=== PATIENT | male | born 1945 | race African-American/Black ===

== ENCOUNTER 2019-12-28 08:44 | Outpatient (CLI) | payer MEDICARE ==
[2019-12-28 10:05] LABS: Blood Urea Nitrogen 21 mg/dL (9-20)
--- NOTE | 2019-12-28 10:47 | Cat Scan Report ---
CT ABDOMEN AND PELVIS WITH CONTRAST HISTORY: PROSTATE CANCER COMPARISON: 12/08/2018 TECHNIQUE: Axial CT images were obtained through the abdomen and pelvis after 100 cc of Omnipaque 300 intravenously. Sagittal and coronal reformatted images. All CT scans at this location are performed using CT dose reduction for ALARA by means of automated exposure control. FINDINGS: CT ABDOMEN: Lung Bases: Clear. Liver: No significant abnormality. Biliary: Cholelithiasis is again noted. No biliary dilatation or acute inflammation. Spleen: No significant abnormality. Unenlarged. Pancreas: No significant abnormality. Adrenals: No significant abnormality. Kidneys: No significant abnormality. Lymphatics: No lymphadenopathy. Vasculature: Moderate diffuse calcific plaques throughout the abdominal aorta and iliac arteries. No stenosis, dissection or aneurysm. Bowel/Peritoneum: No significant abnormality. No free air. No free fluid. Normal appendix. CT PELVIS: : The prostate gland is normal size. The bladder is empty and poorly evaluated. No gross abnormalit y. The distal ureters are unremarkable. Osseous Structures: Subtle blastic bony lesions are identified in the visualized thoracolumbar spine, pelvis and proximal left femur. The bony lesions appear increased in size and both size and number b y approximately 10-20%. For instance, there is a new 1.7 cm blastic bony lesion in T12. There is a ne w 1 cm blastic bony lesion in L4. There is a new 1.6 cm blastic bony lesion in the proximal left femu r. An L1 lesion has increased from 4 mm to 10 mm. No pathologic fractures identified. Additional Findings: None IMPRESSION: Mild progression of osseous metastatic disease is suspected since 12/08/2018 exam as described. No vis ceral mass or anson involvement is identified. Cholelithiasis, unchanged. No acute process is identified. Signer Name: Tello Romero Jr, MD Signed: 12/28/2019 10:42 AM Workstation Name: [id number]
--- NOTE | 2019-12-28 12:54 | Nuclear Medicine Report ---
NUCLEAR MEDICINE BONE SCAN, WHOLE BODY INDICATION: PROSTATE CANCER. TECHNIQUE: 25 mCi of Tc-99m MDP were injected IV. Whole body images were obtained. COMPARISON: Bone scan dated 12/08/2018. CT abdomen pelvis performed the same day. FINDINGS: Skeletal Structures: Fairly symmetric, likely degenerative uptake is present involving the shoulders , spine and knees. Skeletal Lesions: Multiple new bony lesions are identified since the previous exam. Focal radiotracer uptake is identified throughout the sternum, midthoracic spine, T12, L4, left posterior ribs 7 and 1 0, left scapula, left superior iliac bone and left proximal femur.. Soft Tissues: Normal. Kidneys: Normal, symmetric activity. Additional Findings: None. IMPRESSION: Progression of osseous metastasis is demonstrated since the bone scan dated 12/08/2018 as described. Signer Name: Tello Romero Jr, MD Signed: 12/28/2019 12:50 PM Workstation Name: [id number]
== END 2019-12-28 08:45 | disposition home or self-care (01) ==
LOC: NM 08:44
PROVIDERS: ATTEND Hospitalist
DX: K80.20 Calculus of gallbladder without cholecystitis without obstruction (principal); I70.0 Atherosclerosis of aorta; M89.9 Disorder of bone, unspecified; C61 Malignant neoplasm of prostate; C77.2 Secondary and unspecified malignant neoplasm of intra-abdominal lymph nodes; E11.59 Type 2 diabetes mellitus with other circulatory complications; E66.3 Overweight; E66.9 Obesity, unspecified; I10 Essential (primary) hypertension; R74.0 Nonspecific elevation of levels of transaminase and lactic acid dehydrogenase [LDH]; C79.51 Secondary malignant neoplasm of bone; Z95.1 Presence of aortocoronary bypass graft; Z79.899 Other long term (current) drug therapy; Z87.448 Personal history of other diseases of urinary system
CPT/HCPCS: 36415; 74177; 78306; 82565; 84520; A9503; Q9967